=== PATIENT | male | born 1990 | race Caucasian/White ===

== ENCOUNTER → 2019-01-11 | Outpatient (CLI) | payer MEDICARE, OTHER, SELFPAY | LOC: M OUTALCOH 10:27 | PROVIDERS: ATTEND Psychiatry & Neurology Psychiatry | DX: F11.20 Opioid dependence, uncomplicated (principal) ==

== ENCOUNTER → 2019-01-15 | Outpatient (REF) | payer OTHER ==
[2019-01-15 12:32] LABS: BASO # 0.1 10^3/uL (0.0-0.2); BASO % 0.6 % (0.0-1.0); EOS # 0.2 10^3/uL (0.0-0.50); EOS % 2.1 % (0.0-3.0); HEMATOCRIT 42.4 % (42.0-52.0); HEMOGLOBIN 14.3 g/dl (13.5-17.5); LYMPH # 2.4 10^3/uL (1.5-6.5); LYMPH % 31.3 % (24.0-44.0); MEAN CORPUSCULAR HEMOGLOBIN 31.5 pg (27.0-33.0); MEAN CORPUSCULAR HGB CONC 33.7 g/dl (32.0-36.5); MEAN CORPUSCULAR VOLUME 93.4 fl (80.0-96.0); MONO % 13.3 % (0.0-5.0); NEUTROPHILS # 4.1 10^3/uL (1.8-7.7); NEUTROPHILS % 52.4 % (36.0-66.0); PLATELET COUNT, AUTOMATED 162 10^3/uL (150-450); RED BLOOD COUNT 4.54 10^6/uL (4.30-6.10); WHITE BLOOD COUNT 7.7 10^3/uL (4.0-10.0)
[2019-01-15 13:00] LABS: ALBUMIN 4.3 GM/DL (3.2-5.2); ALT/SGPT 36 U/L (12-78); BILIRUBIN,TOTAL 0.6 MG/DL (0.2-1.0); BLOOD UREA NITROGEN 13 MG/DL (7-18); CALCIUM LEVEL 9.3 MG/DL (8.5-10.1); CARBON DIOXIDE LEVEL 27 MEQ/L (21-32); CHLORIDE LEVEL 108 MEQ/L (98-107); CHOLESTEROL LEVEL 134 MG/DL (<200); CHOLESTEROL RISK RATIO 3.435 (<5); CREATININE FOR GFR 0.89 MG/DL (0.70-1.30); GLOMERULAR FILTRATION RATE > 60.0 (>60); GLUCOSE, FASTING 85 MG/DL (70-100); HDL CHOLESTEROL 39 MG/DL (>40); LDL CHOLESTEROL 78 MG/DL (<100); MAGNESIUM LEVEL 2.3 MG/DL (1.8-2.4); NON-HDL-C 95 MG/DL; POTASSIUM SERUM 4.2 MEQ/L (3.5-5.1); SODIUM LEVEL 140 MEQ/L (136-145); TOTAL PROTEIN 7.5 GM/DL (6.4-8.2); TRIGLYCERIDES LEVEL 85 MG/DL (<150)
== END ==
LOC: M SFHCPLAZ 08:17
PROVIDERS: ATTEND Nurse Practitioner Family
DX: R00.2 Palpitations (principal); R07.89 Other chest pain; Z13.220 Encounter for screening for lipoid disorders

== ENCOUNTER 2019-02-04 10:00 | Outpatient (RCR) | payer MEDICAID | END 2019-02-05 | LOC: M OUTALCOH 10:00 | PROVIDERS: ATTEND Psychiatry & Neurology Psychiatry | DX: F11.20 Opioid dependence, uncomplicated (principal); Z72.0 Tobacco use ==

== ENCOUNTER 2019-02-05 03:38 | Emergency (ER) | payer MEDICAID, OTHER ==
[~2019-02-05] VITALS: Ht 185.4 cm; Wt 68.2 kg
[2019-02-05] MEDS ORDERED: NS 1,000 ML IV ONE (04:00)
[2019-02-05] MEDS ORDERED: cloNIDine 0.1 MG TAB PO ONE (04:00)
[2019-02-05 04:16] VITALS: BP 120/75
[2019-02-05 04:16] LABS: BASO # 0.1 10^3/uL (0.0-0.2); BASO % 0.7 % (0.0-1.0); EOS # 0.2 10^3/uL (0.0-0.50); EOS % 1.8 % (0.0-3.0); HEMATOCRIT 41.3 % (42.0-52.0); HEMOGLOBIN 14.5 g/dl (13.5-17.5); LYMPH % 34.7 % (24.0-44.0); MEAN CORPUSCULAR HEMOGLOBIN 32.7 pg (27.0-33.0); MEAN CORPUSCULAR HGB CONC 35.1 g/dl (32.0-36.5); MONO # 0.9 10^3/uL (0.0-0.8); NEUTROPHILS # 4.4 10^3/uL (1.8-7.7); NEUTROPHILS % 51.6 % (36.0-66.0); PLATELET COUNT, AUTOMATED 162 10^3/uL (150-450); RED BLOOD COUNT 4.44 10^6/uL (4.30-6.10); WHITE BLOOD COUNT 8.5 10^3/uL (4.0-10.0)
[2019-02-05 04:31] LABS: ALBUMIN 4.6 GM/DL (3.2-5.2); ALT/SGPT 32 U/L (12-78); BILIRUBIN,DIRECT 0.1 MG/DL (0.0-0.2); BILIRUBIN,TOTAL 0.4 MG/DL (0.2-1.0); BLOOD UREA NITROGEN 12 MG/DL (7-18); CALCIUM LEVEL 9.4 MG/DL (8.5-10.1); CARBON DIOXIDE LEVEL 27 MEQ/L (21-32); CHLORIDE LEVEL 104 MEQ/L (98-107); CREATININE FOR GFR 1.01 MG/DL (0.70-1.30); GLOMERULAR FILTRATION RATE > 60.0 (>60); GLUCOSE, FASTING 99 MG/DL (70-100); LIPASE 70 U/L (73-393); POTASSIUM SERUM 3.4 MEQ/L (3.5-5.1); SODIUM LEVEL 139 MEQ/L (136-145); TOTAL PROTEIN 7.5 GM/DL (6.4-8.2)
[2019-02-05 05:05] VITALS: BP 123/70
== END 2019-02-05 04:58 | disposition home or self-care (01) ==
LOC: M ED 03:38
DX: F11.23 Opioid dependence with withdrawal (principal); F17.210 Nicotine dependence, cigarettes, uncomplicated

== ENCOUNTER 2019-03-02 09:00 | Outpatient (RCR) | payer MEDICAID | END 2019-03-07 | LOC: M OUTALCOH 09:00 | PROVIDERS: ATTEND Psychiatry & Neurology Psychiatry | DX: F11.20 Opioid dependence, uncomplicated (principal); Z72.0 Tobacco use ==

== ENCOUNTER → 2019-07-15 | Outpatient (REF) | payer OTHER, MEDICAID ==
[2019-07-15 17:22] LABS: ALBUMIN 4.5 GM/DL (3.2-5.2); ALT/SGPT 30 U/L (12-78); BILIRUBIN,TOTAL 0.3 MG/DL (0.2-1.0); BLOOD UREA NITROGEN 23 MG/DL (7-18); CALCIUM LEVEL 9.5 MG/DL (8.5-10.1); CARBON DIOXIDE LEVEL 28 MEQ/L (21-32); CHLORIDE LEVEL 108 MEQ/L (98-107); CREATININE FOR GFR 0.96 MG/DL (0.70-1.30); FREE T4 0.94 NG/DL (0.76-1.46); GLOMERULAR FILTRATION RATE > 60.0 (>60); GLUCOSE, FASTING 88 MG/DL (70-100); POTASSIUM SERUM 4.1 MEQ/L (3.5-5.1); SODIUM LEVEL 141 MEQ/L (136-145); TOTAL 25(OH) VITAMIN D 14.3 NG/ML (30.0-100.0); TOTAL PROTEIN 7.8 GM/DL (6.4-8.2)
== END ==
LOC: M LAB REF 15:54
PROVIDERS: ATTEND Nurse Practitioner Adult Health
DX: F41.1 Generalized anxiety disorder (principal); E07.9 Disorder of thyroid, unspecified

== ENCOUNTER → 2020-01-25 | Outpatient (REF) | payer OTHER, MEDICAID ==
[2020-01-25 16:52] LABS: BASO # 0.1 10^3/uL (0.0-0.2); BASO % 1.1 % (0.0-1.0); EOS # 0.1 10^3/uL (0.0-0.5); EOS % 2.4 % (0.0-3.0); HEMATOCRIT 43.5 % (42.0-52.0); HEMOGLOBIN 15.2 g/dl (13.5-17.5); LYMPH # 2.1 10^3/uL (1.5-5.0); LYMPH % 38.2 % (24.0-44.0); MEAN CORPUSCULAR HEMOGLOBIN 32.4 pg (27.0-33.0); MEAN CORPUSCULAR HGB CONC 34.9 g/dl (32.0-36.5); MEAN CORPUSCULAR VOLUME 92.8 fl (80.0-96.0); MONO # 0.7 10^3/uL (0.0-0.8); MONO % 12.4 % (0.0-5.0); NEUTROPHILS # 2.5 10^3/uL (1.5-8.5); NEUTROPHILS % 45.7 % (36.0-66.0); PLATELET COUNT, AUTOMATED 160 10^3/uL (150-450); RED BLOOD COUNT 4.69 10^6/uL (4.30-6.10); WHITE BLOOD COUNT 5.4 10^3/uL (4.0-10.0)
[2020-01-25 17:23] LABS: ALBUMIN 4.4 GM/DL (3.2-5.2); ALT/SGPT 33 U/L (12-78); BILIRUBIN,TOTAL 0.3 MG/DL (0.2-1.0); BLOOD UREA NITROGEN 19 MG/DL (7-18); CARBON DIOXIDE LEVEL 26 MEQ/L (21-32); CHLORIDE LEVEL 106 MEQ/L (98-107); GLOMERULAR FILTRATION RATE > 60.0 (>60); GLUCOSE, FASTING 102 MG/DL (70-100); SODIUM LEVEL 138 MEQ/L (136-145); TOTAL PROTEIN 7.7 GM/DL (6.4-8.2)
[2020-01-26 09:43] LABS: HEPATITIS C VIRUS ABY INDEX 0.1 INDEX (<0.8)
== END ==
LOC: M LAB REF 16:13
PROVIDERS: ATTEND Family Medicine Addiction Medicine
DX: R10.11 Right upper quadrant pain (principal)

== ENCOUNTER → 2020-08-16 | Outpatient (CLI) | payer OTHER, MEDICAID ==
--- NOTE | 2020-08-16 20:02 | REP ---
INDICATION: RIB PAIN. COMPARISON: PA and lateral chest dated 03/10/2012 and right rib series dated 03/10/2012. TECHNIQUE: Right ribs, five views including PA chest. FINDINGS: There is no rib fracture or other rib abnormality. PA chest: There is no pneumothorax, hemothorax or pulmonary contusion. Lung amin are clear. Cardiac size is normal. The obi and mediastinum are unremarkable. There is thoracic scoliosis convex right. IMPRESSION: Negative right rib series. There is thoracic scoliosis convex right. <Electronically signed by Ok Rod > 08/16/201958
== END ==
LOC: M WUC 16:01
PROVIDERS: ATTEND Family Medicine Addiction Medicine
DX: M41.24 Other idiopathic scoliosis, thoracic region (principal); R07.81 Pleurodynia

== ENCOUNTER → 2020-11-21 | Outpatient (REF) | payer OTHER, MEDICAID | LOC: M LAB REF 18:25 | PROVIDERS: ATTEND Family Medicine Addiction Medicine | DX: J02.9 Acute pharyngitis, unspecified (principal) ==

== ENCOUNTER → 2023-04-15 | Outpatient (CLI) | payer OTHER ==
[2023-04-15 14:10] LABS: APPEARANCE, URINE CLEAR (CLEAR); BACTERIA, URINE AUTO NEGATIVE (NEGATIVE); BILIRUBIN, URINE AUTO NEGATIVE (NEGATIVE); BLOOD, URINE BLOOD NEGATIVE (NEGATIVE); COLOR, URINE YELLOW (YELLOW); GLUCOSE, URINE (UA) AUTO NEGATIVE (NEGATIVE); KETONE, URINE AUTO TRACE mg/dL (NEGATIVE); LEUKOCYTE ESTERASE, URINE AUTO NEGATIVE (NEGATIVE); NITRITE, URINE AUTO NEGATIVE (NEGATIVE); PROTEIN, URINE AUTO NEGATIVE (NEGATIVE); RBC, URINE AUTO 1 /HPF (0-3); SPECIFIC GRAVITY URINE AUTO 1.024 (1.002-1.035); SQUAMOUS EPITHELIAL CELL UR AU 0 /HPF (0-6); WBC, URINE AUTO 0 /HPF (0-3)
[2023-04-15 14:41] LABS: HIV 1&2 SCREEN NEGATIVE (NEGATIVE)
[2023-04-15 15:09] LABS: HEPATITIS C VIRUS ABY INDEX 0.14 INDEX (<0.8)
[2023-04-15 15:50] LABS: GC DNA AMPLIFICATION NEGATIVE (NEGATIVE)
== END ==
LOC: M LAB 13:10
DX: B34.9 Viral infection, unspecified (principal); Z11.3 Encounter for screening for infections with a predominantly sexual mode of transmission

== ENCOUNTER → 2023-06-20 | Outpatient (CLI) | payer OTHER ==
[2023-06-20 13:42] LABS: ALKALINE PHOSPHATASE 66 U/L (46-116); ALT/SGPT 24 U/L (7.0-40); AST/SGOT 30 U/L (<34); BILIRUBIN,TOTAL 0.2 MG/DL (0.3-1.2); BLOOD UREA NITROGEN 15 MG/DL (9-23); CALCIUM LEVEL 9.1 MG/DL (8.5-10.1); CARBON DIOXIDE LEVEL 28 MMOL/L (20-31); CHLORIDE LEVEL 108 MMOL/L (98-107); CREATININE FOR GFR 0.84 MG/DL (0.70-1.30); GLOMERULAR FILTRATION RATE > 60.0 (>60); GLUCOSE, FASTING 92 MG/DL (60-100); POTASSIUM SERUM 4.4 MMOL/L (3.5-5.1); SODIUM LEVEL 141 MMOL/L (136-145)
[2023-06-20 13:43] LABS: THYROID STIMULATING HORMONE 1.074 uIU/ML (0.55-4.78); TOTAL 25(OH) VITAMIN D 24.9 NG/ML (20.0-100.0)
== END ==
LOC: M LAB 12:33
PROVIDERS: ATTEND Registered Nurse Psychiatric/Mental Health
DX: F43.20 Adjustment disorder, unspecified (principal)

== ENCOUNTER → 2023-09-29 | Outpatient (REF) | payer OTHER ==
[2023-09-29 13:27] LABS: HIV 1&2 SCREEN NEGATIVE (NEGATIVE)
[2023-09-29 13:36] LABS: HEPATITIS B CORE ANTIBODY IGM NEGATIVE (NEGATIVE); HEPATITIS C VIRUS ABY INDEX 0.04 INDEX (<0.8)
== END ==
LOC: M LAB REF 11:50
PROVIDERS: ATTEND Family Medicine Addiction Medicine
DX: Z11.59 Encounter for screening for other viral diseases (principal)

== ENCOUNTER → 2024-06-30 | Outpatient (REF) | payer OTHER ==
[2024-06-30 14:19] LABS: THYROID STIMULATING HORMONE 1.748 uIU/ML (0.55-4.78)
[2024-06-30 14:20] LABS: TOTAL 25(OH) VITAMIN D 32.8 NG/ML (20.0-100.0)
[2024-06-30 14:23] LABS: FOLATE > 24.00 NG/ML (>5.4)
[2024-06-30 14:24] LABS: VITAMIN B12 LEVEL 553 PG/ML (211-911)
[2024-06-30 14:28] LABS: ALBUMIN 4.4 G/DL (3.2-5.2); ALKALINE PHOSPHATASE 73 U/L (46-116); ALT/SGPT 15 U/L (7.0-40); AST/SGOT 15 U/L (<34); BILIRUBIN,TOTAL 0.4 MG/DL (0.3-1.2); BLOOD UREA NITROGEN 10 MG/DL (9-23); CALCIUM LEVEL 9.8 MG/DL (8.5-10.1); CARBON DIOXIDE LEVEL 27 MMOL/L (20-31); CHLORIDE LEVEL 110 MMOL/L (98-107); CHOLESTEROL LEVEL 145 MG/DL (<200); CHOLESTEROL RISK RATIO 2.55 (<5); CREATININE FOR GFR 0.87 MG/DL (0.70-1.30); GLOMERULAR FILTRATION RATE > 60.0 (>60); GLUCOSE, FASTING 103 MG/DL (60-100); HDL CHOLESTEROL 56.7 MG/DL (>40); LDL CHOLESTEROL 66.1 MG/DL (<100); NON-HDL-C 88.3 MG/DL; POTASSIUM SERUM 3.7 MMOL/L (3.5-5.1); SODIUM LEVEL 143 MMOL/L (136-145); TOTAL PROTEIN 7.5 G/DL (5.7-8.2); TRIGLYCERIDES LEVEL 111 MG/DL (<150)
== END ==
LOC: M LAB REF 12:31
PROVIDERS: ATTEND Physician Assistant
DX: F10.10 Alcohol abuse, uncomplicated (principal); K59.00 Constipation, unspecified; E55.9 Vitamin D deficiency, unspecified

== ENCOUNTER → 2024-09-30 | Outpatient (REF) | payer OTHER ==
[2024-09-30 18:24] LABS: BLOOD UREA NITROGEN 14 MG/DL (9-23); CALCIUM LEVEL 9.4 MG/DL (8.5-10.1); CARBON DIOXIDE LEVEL 27 MMOL/L (20-31); CHLORIDE LEVEL 106 MMOL/L (98-107); CREATININE FOR GFR 0.91 MG/DL (0.70-1.30); GLOMERULAR FILTRATION RATE > 60.0 (>60); GLUCOSE, FASTING 142 MG/DL (60-100); MAGNESIUM LEVEL 2.1 MG/DL (1.8-2.4); POTASSIUM SERUM 4.4 MMOL/L (3.5-5.1); SODIUM LEVEL 139 MMOL/L (136-145)
[2024-09-30 18:26] LABS: BASO % 0.7 % (0.0-1.0); EOS # 0.1 10^3/uL (0.0-0.5); EOS % 1.7 % (0.0-3.0); HEMATOCRIT 47.4 % (42.0-52.0); HEMOGLOBIN 16.2 g/dl (13.5-17.5); LYMPH # 1.9 10^3/uL (1.5-5.0); LYMPH % 32.5 % (24.0-44.0); MEAN CORPUSCULAR HEMOGLOBIN 33.5 pg (27.0-33.0); MEAN CORPUSCULAR HGB CONC 34.2 g/dl (32.0-36.5); MEAN CORPUSCULAR VOLUME 98.1 fl (80.0-96.0); MONO # 0.9 10^3/uL (0.0-0.8); MONO % 15.7 % (2.0-8.0); NEUTROPHILS # 2.8 10^3/uL (1.5-8.5); NEUTROPHILS % 49.2 % (36.0-66.0); PLATELET COUNT, AUTOMATED 178 10^3/uL (150-450); RED BLOOD COUNT 4.83 10^6/uL (4.30-6.10); THYROID STIMULATING HORMONE 1.383 uIU/ML (0.55-4.78); WHITE BLOOD COUNT 5.8 10^3/uL (4.0-10.0)
== END ==
LOC: M LAB REF 16:45
PROVIDERS: ATTEND Physician Assistant
DX: R42 Dizziness and giddiness (principal)

== ENCOUNTER → 2025-01-19 | Outpatient (CLI) | payer OTHER | LOC: M RAD 14:18 | PROVIDERS: ATTEND Physician Assistant | DX: N50.89 Other specified disorders of the male genital organs (principal); N50.3 Cyst of epididymis ==

== ENCOUNTER 2025-09-04 04:57 | Emergency (ER) | payer OTHER ==
[~2025-09-04] VITALS: Ht 185.4 cm; Wt 83.3 kg
[2025-09-04 04:59] VITALS: BP 158/94; TEMP 98.3; O2SAT 98
[2025-09-04 05:47] LABS: BASO # 0.1 10^3/uL (0.0-0.2); BASO % 0.4 % (0.0-1.0); EOS # 0.0 10^3/uL (0.0-0.5); EOS % 0.2 % (0.0-3.0); LYMPH # 3.6 10^3/uL (1.5-5.0); LYMPH % 30.2 % (24.0-44.0); MONO # 0.9 10^3/uL (0.0-0.8); MONO % 7.3 % (2.0-8.0); NEUTROPHILS # 7.3 10^3/uL (1.5-8.5); NEUTROPHILS % 61.7 % (36.0-66.0); PLATELET COUNT, AUTOMATED 188 10^3/uL (150-450)
[2025-09-04 06:09] LABS: ALT/SGPT 235 U/L (7.0-40); AST/SGOT 342 U/L (<34); CALCIUM LEVEL 8.9 MG/DL (8.5-10.1); CARBON DIOXIDE LEVEL 27 MMOL/L (20-31); CHLORIDE LEVEL 105 MMOL/L (98-107); CREATININE FOR GFR 0.71 MG/DL (0.70-1.30); GLOMERULAR FILTRATION RATE > 90.0 (>60); POTASSIUM SERUM 3.4 MMOL/L (3.5-5.1); SODIUM LEVEL 144 MMOL/L (136-145)
== END 2025-09-04 05:57 | disposition left against medical advice (07) ==
LOC: M ED 04:57
DX: Z53.21 Procedure and treatment not carried out due to patient leaving prior to being seen by health care provider (principal)